=== PATIENT | female | born 1970 | race Caucasian/White ===

== ENCOUNTER → 2018-02-18 | Outpatient (CLI) | payer BC ==
[~2018-02-18] MED LIST: CLAR10CA3 PO; FERR325T18 PO; LEVO.075 PO; LEVO.125 PO; LEVO137T2 PO; LEXA10TA PO; MULT-65 PO; OXYC-360 PO; PREN0.01 PO; SYNT137T PO; VITA100064 PO; VITACAP7 PO
[2018-02-18 11:58] LABS: HEMATOCRIT 37.8 % (35.0-46.0); HEMOGLOBIN 12.7 GM/DL (11.6-15.3); MEAN CELL VOLUME 90.1 FL (80.0-100.0); MEAN CORPUSCULAR HEMOGLOBIN 30.4 PG (27.0-34.0); MEAN CORPUSCULAR HGB CONC 33.7 % (32.0-36.0); MEAN PLATELET VOLUME 8.4 FL (7.0-11.0); PLATELET COUNT 279 TH/MM3 (150-450); RED CELL DISTRIBUTION WIDTH 13.9 % (11.6-17.2); WHITE BLOOD COUNT 5.7 TH/MM3 (4.0-11.0)
[2018-02-18 12:27] LABS: BICARBONATE 30.2 MEQ/L (21.0-32.0); BLOOD UREA NITROGEN 13 MG/DL (7-18); CALCIUM 8.4 MG/DL (8.5-10.1); CHLORIDE 104 MEQ/L (98-107); CREATININE 0.62 MG/DL (0.50-1.00); GLOMERULAR FILTRATION RATE 104 ML/MIN (>89); GLUCOSE,FASTING 121 MG/DL (74-99); SODIUM (NA) 138 MEQ/L (136-145)
== END ==
LOC: CPRE 11:30
PROVIDERS: ATTEND Obstetrics & Gynecology
DX: Z01.812 Encounter for preprocedural laboratory examination (principal); N85.01 Benign endometrial hyperplasia; N92.1 Excessive and frequent menstruation with irregular cycle; R87.619 Unspecified abnormal cytological findings in specimens from cervix uteri
CPT/HCPCS: 36415; 80048; 84702; 85027

== ENCOUNTER 2018-02-26 05:47 | Observation (INO) | payer BC ==
--- NOTE | 2018-02-25 18:08 | MH ---
cc: Aylin Davidson MD DATE OF ADMISSION: 02/26/2018 SCHEDULED PROCEDURE: LAVH, USO. INDICATION: Unacceptable bleeding in amount, timing and duration. HISTORY OF PRESENT CONDITION: Santa is a 47-year-old white female, para 1, who has been a patient of the practice for some time and has been dealing with bleeding that she finds unacceptable in amount, timing and duration. This has not been amenable to oral contraceptives. She has been found to have benign endometrial hyperplasia, specifically complex without atypia, and she also has the HPV cervical infection. These factors all lead to the appropriate decision of LAVH and removal of her remaining tube and ovary. She has had a prior salpingo-oophorectomy with Dr. 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 Her general health is significant for hypothyroidism, for which she takes Synthroid and liothyronine, and she has mild depression, for which she takes Lexapro. 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 She is under some situational stress and bereavement having recently lost her grandfather to whom she is quite close. VITAL SIGNS: Her weight is 150. Her height is 5 feet 3 inches. Her blood pressure is 118/72. ALLERGIES: SHE HAS NO ALLERGIES. SOCIAL HISTORY: She does not smoke, drink or use illicit drugs. She works at the [employer]. PHYSICAL EXAMINATION: GENERAL: She is a well-developed, well-nourished white female, in no acute distress. She is afebrile with stable vital signs. LUNGS: Clear. HEART: Regular rate and rhythm are regular. BREAST: Has been reassuring. ABDOMEN: Benign. She has no hepatosplenomegaly. No CVA tenderness. No inguinal lymphadenopathy. No hernias. PELVIC: Perineum is estrogenized. Vault is elevated. Cervix is multiparous. Uterus does not palpate enlarged, nor is it enlarged on ultrasound. The remaining ovary is without any adnexal mass. There is no ascites. No other pathology noted on imaging. EXTREMITIES: Unremarkable. IMPRESSION: Perimenopausal menometrorrhagia, complex endometrial hyperplasia without atypia. Human papillomavirus positive, high risk serotype of the cervix. PLAN: To proceed with LAVH BSO. Risks, benefits, expectations have all been reviewed with her in detail. She understands there is risk of damaging bowel, bladder, blood vessels, complications of medication, anesthesia up to and including . She has signed consents and is scheduled for tomorrow morning. Aylin Davidson MD PPC/SB , 05:50 PM , 06:07 PM
[~2018-02-26] VITALS: Ht 160 cm; Wt 68.8 kg
[~2018-02-26 05:47] MED LIST changes: -LEVO.075 PO; -LEVO.125 PO; -OXYC-360 PO; -PREN0.01 PO; -SYNT137T PO
[2018-02-26] MEDS ORDERED: CHLORHEXIDINE GLUCONATE 2 % 1 PACK (2 CLOTHS) TOPICAL PRN (06:15)
[2018-02-26] MEDS ORDERED: LACTATED RINGER'S 1000 ML IV PRN (06:15)
[2018-02-26] MEDS ORDERED: POVIDONE IODINE 5% (ANTISEPSIS KIT) 4 APPLICATIONS EACH NARE PRN (06:15)
[2018-02-26] MEDS ORDERED: SODIUM CHLORID 0.9% 500 ML IV PRN (06:15)
[2018-02-26] MEDS ORDERED: ceFAZolin 2 GM in NS 100 ML IV SCH (06:15)
[2018-02-26] MEDS ORDERED: METOPROLOL TARTRATE 25 MG TAB PO PRN (06:15)
[2018-02-26] MEDS ORDERED: ceFAZolin 2 GM PREMIX 50 ML IV SCH (06:30)
[2018-02-26] MEDS ORDERED: ACETAMINOPHEN 1000 MG/100 ML 100 ML IV ONE (06:49)
[2018-02-26] MEDS ORDERED: fentaNYL CITRATE 250 MCG/5 ML AMP ONE (06:50)
[2018-02-26] MEDS ORDERED: VASOPRESSIN 20 UNITS/ML VIAL ONE (07:01)
[2018-02-26] MEDS ORDERED: ESTROGENS CONJUGATED VAG CREA 15 APPL/30 GM TUBE ONE (07:02)
[2018-02-26] MEDS ORDERED: BUPIVACAINE/EPINEPHRINE 0.25% 50 ML VIAL ONE (07:02)
--- NOTE | 2018-02-26 10:28 | PD.OP ---
Operative Report Date of Surgery: Feb 26, 2018 Preoperative Diagnosis: complex endoemtrial hyperplasia without atypia perimenopausal bleeding persistent HPV Postoperative Diagnosis: same mild ascites, liver cyst and masses noted adjacent to liver--biopsied Procedure: LAVHRSO enterocele closure cystoscopy biopsy of mass by liver Anesthesia: GET Surgeon: Aylin Davidson Manager Resource(s): naveed tavares Operation and Findings: Aylin Goldsmith MD Feb 26, 2018 10:28
[2018-02-26] MEDS ORDERED: diphenhydrAMINE HCL 25 MG CAP PO PRN (10:30)
[2018-02-26] MEDS ORDERED: ZOLPIDEM TARTRATE 5 MG TAB PO PRN (10:30)
[2018-02-26] MEDS ORDERED: PROMETHAZINE INJ 25 MG/ML VIAL IM PRN (10:30)
[2018-02-26] MEDS ORDERED: oxyCODONE/ACETAMINOPHEN 5 MG/325 MG TAB PO PRN (10:30)
[2018-02-26] MEDS ORDERED: SODIUM CHLORIDE 0.9% FLUSH 10 ML FLUSH IV FLUSH PRN (10:30)
[2018-02-26] MEDS ORDERED: HYDROmorphone HCL PF 2 MG/ML VIAL IV PRN (10:30)
[2018-02-26] MEDS ORDERED: LORazepam 0.5 MG TAB PO PRN (10:30)
[2018-02-26] MEDS ORDERED: ONDANSETRON HCL 4 MG/2 ML VIAL IVP PRN (10:30)
[2018-02-26] MEDS ORDERED: *morphine SULFATE 4 MG/ML PERIprocedure ONLY ONE (11:02)
--- NOTE | 2018-02-26 11:04 | MP ---
cc: Aylin Davidson MD DATE OF OPERATION: 02/26/2018 DATE OF PROCEDURE: 02/26/2018. PREOPERATIVE DIAGNOSES: 1. Perimenopausal metrorrhagia. 2. Known endometrial hyperplasia without atypia. 3. History of cervical dysplasia with persistent human papillomavirus . POSTOPERATIVE DIAGNOSES: 1. Perimenopausal metrorrhagia. 2. Known endometrial hyperplasia without atypia. 3. History of cervical dysplasia with persistent human papillomavirus . 4. Ascites, mild amount noted intraoperatively. 5. Liver cyst and tissue of undetermined significance noted adjacent to the right liver lobe, biopsied. PROCEDURE: 1. Laparoscopic-assisted vaginal hysterectomy with right salpingo-oophorectomy, enterocele obliteration. 2. Cystoscopy. 3. Biopsy of tissue adjacent to the right lobe of the liver. SURGEON: MD Lety MANAGER DIABETES: OR staff and Becky Irene MS3 FINDINGS: Examination under anesthesia revealed a globular, small, mobile uterus with a moderate amount of descent. Adnexa were not palpable. Upon entering the peritoneal cavity, a moderate amount of fluid in the pelvis was noted. She was having her menstrual bleeding, so this was considered possibly backflow but significant in amount. The uterus was globular but not overly enlarged. The right tube was normal. The right ovary appeared to be firm with some brown structures almost like teeth, possibly a fibroma. The tube itself was unremarkable. Fluid continued to accumulate throughout the case, both laparoscopically and vaginally, that was not bleeding and when the case was completed this fluid was drained completely and the liver evaluated. She was found to have a significantly large cyst on the liver and just above the cyst were at least 2 areas of undetermined tissue from which a biopsy was taken from the largest one. Sponge, instrument and needle count were correct. Urine was clear and copious and cystoscopy revealed no iatrogenic pathology or intrinsic pathology. Both ureteral orifices showed good flow and she tolerated the procedure well. Dr. Sams viewed intraoperatively and agreed that a frozen was not indicated as we would not act on it at this time. Dr. Bruce was able to view the photos postoperatively and has agreed to see the patient once the biopsies are back, if anything additional indicated. OPERATIVE PROCEDURE: The patient was identified as Santa Levy. Her permit was reviewed with her in holding. She was taken to the operating room and placed under general endotracheal anesthesia in the dorsal lithotomy position. A timeout was performed. She received Ancef within an hour of incision and she was prepped and draped in the usual sterile fashion. The Oh was placed under sterile conditions. A single-tooth tenaculum was used to grasp the cervix and an acorn tenaculum placed in the cervical os. Attention was directed to the abdomen. A vertical incision was made in the umbilicus after infiltration with anesthetic and the trocar and sleeve placed under direct visualization. Then the right and left 5 mm trocars were placed under direct visualization with care to avoid inferior branches of the inferior epigastric. At this point, evaluation of the abdominal and pelvic contents was performed. The fluid around the liver was noted and obscured the masses at this time. The fluid was drained from the abdomen and the right round ligament was grasped, transected and the anterior leaf of the broad ligament dissected off the lower uterine segment. The right infundibulopelvic ligament was transected and subsequent pedicles were taken down to the level of the uterosacral. This was repeated on the left side, but the left ovary and tube were surgically absent. At this point, attention was directed to the perineum. The acorn tenaculum was removed. The cervix was grasped with tenaculum. It was infiltrated with local anesthetic and then circumcised with the Bovie on cutting. The posterior and anterior cul-de-sacs were entered sharply and the uterosacrals were clamped, cut, and suture ligated. Additional pedicles were taken until the uterus and the right adnexa were free and removed. The peritoneum was closed in a pursestring fashion. The uterosacrals were plicated and then the vaginal vault was closed in a running interlocking vertical fashion. Attention was directed back to the abdomen and careful evaluation of the pelvis was performed. The left sidewall appeared to have fluid buildup underneath the peritoneum that was leaking out. This was evaluated. The ureters were evaluated, were peristalsing. The fluid was drained. She was placed in reverse Trendelenburg and the fluid was drained away from the liver and the cyst was noted along with the 2 masses that appeared adjacent, but not necessarily adherent to the liver. The largest was biopsied. The cyst was left alone. The appendix was identified. The gallbladder was identified. All of the omentum was evaluated. All these structures appeared normal. There did appear to be some potential implants on the flexure of the colon at this point, but these were not removed. Subsequent to this abdominal evaluation during which Dr. Bruce and Dr. Mark were both called and Dr. Sams was able to come in, attention was directed to the vagina again and the Oh catheter was used to fill the bladder. The Oh was removed and the bladder was evaluated. Both ureteral orifices were seen and urine was flowing from both. There appeared to be an external compression of the bladder that I think was just the vaginal cuff repair. There was no evidence of any papillary or other tissue of concern in the bladder proper. The Oh was replaced. She was placed in dorsal supine position, awoken, and taken to the recovery room in stable condition. Blood loss was approximately 100 mL. Urine was clear and copious. She tolerated the procedure well. Aylin Davidson MD PPC/SB , 10:24 AM , 11:03 AM
[2018-02-26] MEDS: KETOROLAC TROMETHAMINE 30 MG/ML (IVP) VIAL IVP SCH ×2 (11:09→23:11)
[2018-02-26] MEDS ORDERED: *MEPERIDINE 25 MG INJ VIAL PERIprocedural Use ONLY ONE (11:23)
[2018-02-26 11:52] VITALS: BP 106/65; PULSE 72; RESP 16; O2SAT 99
[2018-02-26] MEDS ORDERED: ONDANSETRON HCL 4 MG/2 ML VIAL IV ONE (12:00)
[2018-02-26] MEDS ORDERED: GLYCOPYRROLATE 1 MG/5 ML SYRINGE IV PUSH ONE (12:00)
[2018-02-26] MEDS ORDERED: LACTATED RINGER'S 1000 ML INJ 1,000 ML IV ONE (12:00)
[2018-02-26] MEDS ORDERED: DEXAMETHASONE SOD PHOS 4 MG/ML VIAL IV ONE (12:00)
[2018-02-26] MEDS ORDERED: LIDOCAINE HCL 1% PF 5 ML SYRINGE OTHER ONE (12:00)
[2018-02-26] MEDS ORDERED: ROCURONIUM INJ 50 MG/5 ML SYRINGE IV PUSH ONE (12:00)
[2018-02-26] MEDS ORDERED: NEOSTIGMINE 5 MG/5 ML SYRINGE IV PUSH ONE (12:00)
[2018-02-26] MEDS ORDERED: ePHEDrine/NS 25 MG/5 ML SYRINGE IV ONE (12:00)
[2018-02-26] MEDS ORDERED: PROPOFOL 200 MG/20 ML AMP IV ONE (12:00)
[2018-02-26] MEDS: DOCUSATE SODIUM 100 MG CAP PO SCH ×2 (12:17→23:08)
[2018-02-26] MEDS: oxyCODONE/ACETAMINOPHEN 5 MG/325 MG TAB PO PRN ×3 (12:17→23:09)
[2018-02-26 16:30] VITALS: BP 101/66; PULSE 74; RESP 18; TEMP 98.3
[2018-02-26] MEDS ORDERED: LEVOTHYROXINE SODIUM 125 MCG TAB PO ONE (18:30)
[2018-02-26] MEDS ORDERED: ESCITALOPRAM OXALATE 10 MG TAB PO ONE (18:30)
[2018-02-26 20:00] VITALS: BP 97/54; PULSE 93; RESP 18; TEMP 98; O2SAT 97
[2018-02-26] MEDS ORDERED: SODIUM CHLORIDE 0.9% FLUSH 10 ML FLUSH IV FLUSH SCH (21:00)
[2018-02-27] VITALS: BP 91/78; PULSE 67; RESP 18; TEMP 98; O2SAT 97
[2018-02-27 04:00] VITALS: BP 88/59; PULSE 63; RESP 16; TEMP 97.9; O2SAT 97
[2018-02-27] MEDS: oxyCODONE/ACETAMINOPHEN 5 MG/325 MG TAB PO PRN ×4 (04:56→12:30)
[2018-02-27 05:59] LABS: AUTOMATED NEUTROPHIL # 7.9 TH/MM3 (1.8-7.7); BASOPHIL % 0.3 % (0.0-2.0); EOSINOPHIL % 0.3 % (0.0-4.0); HEMATOCRIT 28.2 % (35.0-46.0); HEMOGLOBIN 9.6 GM/DL (11.6-15.3); LYMPH % 17.6 % (9.0-44.0); LYMPHOCYTE # 1.9 TH/MM3 (1.0-4.8); MEAN CELL VOLUME 90.7 FL (80.0-100.0); MEAN CORPUSCULAR HEMOGLOBIN 30.8 PG (27.0-34.0); MEAN CORPUSCULAR HGB CONC 33.9 % (32.0-36.0); MEAN PLATELET VOLUME 9.1 FL (7.0-11.0); MONO % 8.5 % (0.0-8.0); MONOCYTE # 0.9 TH/MM3 (0-0.9); NEUT % 73.3 % (16.0-70.0); PLATELET COUNT 259 TH/MM3 (150-450); RED BLOOD COUNT 3.11 MIL/MM3 (4.00-5.30); RED CELL DISTRIBUTION WIDTH 14.1 % (11.6-17.2); WHITE BLOOD COUNT 10.8 TH/MM3 (4.0-11.0)
[2018-02-27] MEDS: KETOROLAC TROMETHAMINE 30 MG/ML (IVP) VIAL IVP SCH (06:00)
[2018-02-27] MEDS: IBUPROFEN 600 MG TAB PO PRN ×2 (06:19→12:28)
[2018-02-27 06:26] LABS: ALBUMIN 2.8 GM/DL (3.4-5.0); BICARBONATE 28.6 MEQ/L (21.0-32.0); CREATININE 0.68 MG/DL (0.50-1.00)
[2018-02-27 06:27] LABS: DIRECT BILIRUBIN ADULT 0.1 MG/DL (0.0-0.2)
[2018-02-27 06:30] LABS: INDIRECT BILIRUBIN 0.2 MG/DL (0.0-0.8); TOTAL BILIRUBIN ADULT 0.3 MG/DL (0.2-1.0); TOTAL PROTEIN 5.8 GM/DL (6.4-8.2)
--- NOTE | 2018-02-27 08:03 | HHI.PR ---
Subjective Remarks Doing well, pain is moderately controlled 12/20 now. eating well. Objective Vital Signs Vital Signs Date Time Temp Pulse Resp B/P (MAP) Pulse Ox O2 Delivery O2 Flow Rate FiO2 02/27/18 04:00 97.9 63 16 88/59 (69) 97 02/27/18 00:00 98.0 67 18 91/78 (82) 97 02/26/18 20:00 98.0 93 18 97/54 (68) 97 02/26/18 16:30 98.3 74 18 101/66 (78) 02/26/18 11:52 72 16 106/65 (79) 99 02/26/18 11:30 97.5 79 20 95/50 (65) 100 Nasal Cannula 2 02/26/18 11:15 73 20 95/50 (65) 100 Nasal Cannula 2 02/26/18 11:00 79 20 105/58 (74) 100 Nasal Cannula 2 02/26/18 10:45 73 20 98/53 (68) 100 Nasal Cannula 2 02/26/18 10:26 97.5 76 20 109/68 (82) 95 Nasal Cannula 2 I/O 02/26/18 02/26/18 02/26/18 02/27/18 02/27/18 02/27/18 07:00 15:00 23:00 07:00 15:00 23:00 Intake Total 1200 ml Output Total 600 ml 1500 ml 2000 ml Balance 600 ml -1500 ml -2000 ml Intake Other 1200 ml Output Urine Total 500 ml 1500 ml 2000 ml Estimated Blood Loss 100 ml # Voids 1 Result Diagram: 02/27/18 0504 02/27/18 0504 Objective Remarks Chest is clear, regular rate and rhythm. Abdomen is soft and non-distended. Incisions clean and dry. Some oozing from RLQ incision no significant vaginal discharge Ext no CCE. Hgb 12.7 to 9.6 which is lower than I would have expected A/P Assessment and Plan Post Op Day 1 Doing well do agnel yet have answers for the moderate ascites found or the implants by the [facility]--possibley ovarian from her surgery in 2009? Await path Home todayif up to it and return to office in one week with sonogram to evaluate for recurrent ascites. Aylin Davidson MD Feb 27, 2018 08:03
[2018-02-27 09:12] VITALS: BP 104/69; PULSE 65; RESP 18; TEMP 98.3; O2SAT 98
[2018-02-27] MEDS ORDERED: IRON SUCROSE INJ 200 MG in SODIUM CHLORIDE 0.9% INJ 100 ML IV ONE (10:00)
[2018-02-27 12:03] VITALS: BP 100/65; PULSE 65; RESP 18; TEMP 98.3; O2SAT 99
[2018-02-27] MEDS: DOCUSATE SODIUM 100 MG CAP PO SCH (12:28)
== END 2018-02-27 14:38 | disposition home or self-care (01) ==
LOC: HSDC 05:47 → HSDI 10:30 → H1EA 11:35
PROVIDERS: ADMIT Obstetrics & Gynecology; ATTEND Obstetrics & Gynecology
DX: N85.01 Benign endometrial hyperplasia (principal); D39.11 Neoplasm of uncertain behavior of right ovary; N92.4 Excessive bleeding in the premenopausal period; A63.0 Anogenital (venereal) warts; R18.8 Other ascites; K76.89 Other specified diseases of liver; N81.5 Vaginal enterocele; N88.8 Other specified noninflammatory disorders of cervix uteri; N80.0 Endometriosis of uterus; E03.9 Hypothyroidism, unspecified; F32.9 Major depressive disorder, single episode, unspecified
CPT/HCPCS: 00840; 47379; 57268; 58552; 80048; 80076; 85025; 86850; 86900; 86901; 88307; 88341; 88342; 94150; G0378; J0131; J0690; J1100; J1756; J1885; J2175; J2270; J2405; J2710; J3010; J7120